=== PATIENT | male | born 1980 | race African-American/Black ===

== ENCOUNTER 2022-01-17 08:46 | Outpatient (CLI) | payer OTHER | END 2022-01-17 08:47 | disposition home or self-care (01) | LOC: CSHMRI 08:46 | PROVIDERS: ATTEND Nurse Practitioner Family | DX: S49.91XA Unspecified injury of right shoulder and upper arm, initial encounter (principal); S46.011A Strain of muscle(s) and tendon(s) of the rotator cuff of right shoulder, initial encounter; M62.511 Muscle wasting and atrophy, not elsewhere classified, right shoulder; S43.431A Superior glenoid labrum lesion of right shoulder, initial encounter; S46.211A Strain of muscle, fascia and tendon of other parts of biceps, right arm, initial encounter ==